=== PATIENT | female | born 1970 | race African-American/Black ===

== ENCOUNTER 2021-09-08 10:28 | Inpatient (IN) | payer SELFPAY ==
[~2021-09-08] VITALS: Ht 167.6 cm; Wt 80.0 kg
[2021-09-08] MEDS ORDERED: ONDANSETRON 4MG ODT PO ONE (11:15)
[2021-09-08] MEDS ORDERED: FAMOTIDINE 20MG TABLET PO ONE (11:15)
[2021-09-08] MEDS ORDERED: MIDAZOLAM HCL 2 MG/2 ML VIAL IM ONE (11:15)
[2021-09-08] MEDS ORDERED: MAGNESIUM/ALUMINUM HYDROXIDE/SIMETHICONE 30ML UDC PO ONE (11:15)
[2021-09-08] MEDS ORDERED: HALOPERIDOL LACTATE 5MG/ML VIAL IM ONE (11:15)
[2021-09-08] MEDS ORDERED: SODIUM CHLORIDE 0.9% 1,000 ML IV ONE (12:00)
[2021-09-08] MEDS ORDERED: LORAZEPAM 2MG/ML CPJ IV ONE (12:15)
[2021-09-08] MEDS ORDERED: CALCIUM GLUCONATE 100MG/ML 10ML VIAL IV ONE (13:00)
[2021-09-08] MEDS ORDERED: ATROPINE SULFATE 1MG/10ML SYR IV ONE (13:00)
[2021-09-08] MEDS ORDERED: NOREPINEPHRINE 8MG/250ML PMX 250 ML IV PRN (13:04)
[2021-09-08] MEDS ORDERED: NALOXONE HCL 0.4 MG/ML 1ML VIAL IV ONE (13:15)
[2021-09-08 13:38] LABS: CHLORIDE 106 mEq/L (98-107)
[2021-09-08] MEDS ORDERED: KETAMINE HCL 100 MG in SODIUM CHLORIDE 0.9% 98 ML IV PRN (13:45)
[2021-09-08] MEDS ORDERED: KETAMINE HCL IV PRN (13:45)
[2021-09-08] MEDS ORDERED: SODIUM CHLORIDE 0.9% IV PRN (13:45)
[2021-09-08 13:49] LABS: MEAN CORPUSCULAR HEMOGLOBIN 16.2 pg (28.0-32.0); MEAN CORPUSCULAR VOLUME 66.5 fL (81.0-99.0); MEAN PLATELET VOLUME 9.3 fl (7.4-10.4); PLATELET 237 x1000/uL (130-400); RED BLOOD CELL COUNT 2.65 mill/uL (4.2-5.4); RED CELL DISTRIBUTION WIDTH 22.7 % (11.6-14.6)
[2021-09-08 13:51] LABS: HEMATOCRIT. 17.6 % (36.0-48.0); HEMOGLOBIN. 4.3 g/dL (12.0-16.0)
[2021-09-08] MEDS ORDERED: PANTOPRAZOLE 80 MG in SODIUM CHLORIDE 0.9% 100 ML IV STA (13:52)
[2021-09-08] MEDS ORDERED: OCTREOTIDE ACETATE 50 MCG/ML 1ML IV STA (13:52)
[2021-09-08 14:01] LABS: BG BASE EXCESS -28.2 mmol/L (-2.0-2.0); BG CARBOXYHEMOGLOBIN 1.5 % (0.5-1.5); BG DEOXYHEMOGLOBIN 0.3 % (0.0-5.0); BG HCO3 ACT 3.2 mmol/L (22.0-26.0); BG METHEMOGLOBIN 0.3 % (0.0-1.5); BG OXYGEN SATURATION 99.7 % (92.0-98.5); BG OXYHEMOGLOBIN 97.9 % (94.0-97.0); BG PCO2 20.6 mmHg (35.0-45.0); BG PH 6.806 (7.350-7.450); BG PO2 530.6 mmHg (75.0-100.0); BG SAMPLE SITE RIGHT FEMORAL; BG TOTAL HEMOGLOBIN 4.7 g/dL (12.0-18.0); BG VENT MODE VENT - AC
[2021-09-08 14:08] LABS: NUCLEATED RED BLOOD CELLS 5 /100 WBC
[2021-09-08 14:09] LABS: PLATELET ESTIMATE NORMAL
[2021-09-08] MEDS ORDERED: VANCOMYCIN 1 G PREMIX 200 ML IV ONE (14:15)
[2021-09-08] MEDS ORDERED: INSULIN REGULAR (DRIP) 100 UNITS in SODIUM CHLORIDE 0.9% 99 ML IV NR (14:15)
[2021-09-08] MEDS ORDERED: CEFTRIAXONE 2 G PREMIX 50 ML IV ONE (14:15)
[2021-09-08] MEDS ORDERED: DEXT 5% WATER + KCL 20MEQ/L 1,000 ML IV ONE (14:15)
[2021-09-08] MEDS ORDERED: SODIUM BICARBONATE 150 MEQ in SODIUM CHLORIDE 0.45% 1,000 ML IV SCH (14:15)
[2021-09-08] MEDS: NOREPINEPHRINE 8MG/250ML PMX 250 ML IV PRN ×3 (14:16→22:54)
[2021-09-08] MEDS: DOPAMINE 400 MG PREMIX 250 ML IV PRN ×2 (14:44→22:54)
[2021-09-08] MEDS ORDERED: VASOPRESSIN 20 UNIT in SODIUM CHLORIDE 0.9% 99 ML IV PRN (15:30)
[2021-09-08 15:36] LABS: BG BASE EXCESS -19.6 mmol/L (-2.0-2.0); BG CARBOXYHEMOGLOBIN 0.7 % (0.5-1.5); BG DEOXYHEMOGLOBIN 14.3 % (0.0-5.0); BG HCO3 ACT 9.4 mmol/L (22.0-26.0); BG METHEMOGLOBIN 0.2 % (0.0-1.5); BG OXYGEN SATURATION 85.6 % (92.0-98.5); BG OXYHEMOGLOBIN 84.8 % (94.0-97.0); BG PCO2 37.7 mmHg (35.0-45.0); BG PH 7.016 (7.350-7.450); BG PO2 76.5 mmHg (75.0-100.0); BG SAMPLE SITE RIGHT FEMORAL; BG TOTAL HEMOGLOBIN 5.1 g/dL (12.0-18.0); BG VENT MODE VENT - AC
[2021-09-08] MEDS: EPINEPHRINE 5 MG in SODIUM CHLORIDE 0.9% 250 ML IV PRN ×2 (15:46→21:40)
[2021-09-08] MEDS ORDERED: SODIUM BICARBONATE 8.4% 1 MEQ/ML 50ML SYR IV ONE (15:48)
[2021-09-08] MEDS: VASOPRESSIN 20 UNIT in SODIUM CHLORIDE 0.9% 99 ML IV PRN ×2 (16:00→22:55)
[2021-09-08] MEDS ORDERED: SODIUM BICARBONATE 8.4% 1 MEQ/ML 50ML SYR IV NR (16:30)
[2021-09-08 16:53] LABS: CLARITY URINE TURBID (CLEAR); COLOR URINE DARK YELLOW (YELLOW); KETONES URINE TRACE (NEGATIVE); LEUKOCYTE ESTERASE URINE 2+ (NEGATIVE); NITRITE URINE NEGATIVE (NEGATIVE); OCCULT BLOOD URINE 3+ (NEGATIVE); PROTEIN URINE 3+ (NEGATIVE); SPECIFIC GRAVITY URINE 1.025 (1.005-1.030)
[2021-09-08 17:09] LABS: *AMPHETAMINES SCREEN URINE NEGATIVE (NEGATIVE); *BARBITURATES SCREEN URINE NEGATIVE (NEGATIVE); *BENZODIAZEPINES SCREEN URINE NEGATIVE (NEGATIVE); *COCAINE SCREEN URINE PRESUMTIVE POSITIVE (NEGATIVE); METHADONE URINE SCREEN NEGATIVE (NEGATIVE); OPIATES URINE SCREEN NEGATIVE (NEGATIVE)
[2021-09-08 17:10] LABS: CANNABINOID URINE SCREEN NEGATIVE (NEGATIVE); PHENCYCLIDINE URINE SCREEN NEGATIVE (NEGATIVE)
[2021-09-08] MEDS: SODIUM BICARBONATE 150 MEQ in DEXTROSE 5% WATER 1,000 ML IV SCH (17:36)
[2021-09-08 17:56] LABS: ETHANOL BLOOD < 10 mg/dL
[2021-09-08 18:09] LABS: BG BASE EXCESS -20.4 mmol/L (-2.0-2.0); BG CARBOXYHEMOGLOBIN 0.2 % (0.5-1.5); BG DEOXYHEMOGLOBIN 5.7 % (0.0-5.0); BG HCO3 ACT 9.1 mmol/L (22.0-26.0); BG METHEMOGLOBIN 0.7 % (0.0-1.5); BG OXYGEN SATURATION 94.2 % (92.0-98.5); BG OXYHEMOGLOBIN 93.4 % (94.0-97.0); BG PCO2 37.5 mmHg (35.0-45.0); BG PH 7.004 (7.350-7.450); BG PO2 105.7 mmHg (75.0-100.0); BG SAMPLE SITE RIGHT FEMORAL; BG TOTAL HEMOGLOBIN 6.8 g/dL (12.0-18.0); BG VENT MODE VENT - AC
[2021-09-08 18:14] LABS: PHOSPHORUS 10.1 mg/dL (2.5-4.9)
[2021-09-08] MEDS ORDERED: ACETAMINOPHEN 650MG SUPP PR PRN (18:30)
[2021-09-08] MEDS ORDERED: DIPHENHYDRAMINE 50MG/ML VIAL IV PRN (18:30)
[2021-09-08] MEDS ORDERED: ONDANSETRON HCL 4MG/2ML INJ IV PRN (18:30)
[2021-09-08 19:53] LABS: PHOSPHORUS 10.2 mg/dL (2.5-4.9)
[2021-09-09] MEDS: NOREPINEPHRINE 8MG/250ML PMX 250 ML IV PRN ×5 (00:25→08:19)
[2021-09-09 03:51] LABS: CHLORIDE 101 mEq/L (98-107); HEMATOCRIT. 22.8 % (36.0-48.0); MEAN CORPUSCULAR HEMOGLOBIN 19.5 pg (28.0-32.0); MEAN CORPUSCULAR VOLUME 73.1 fL (81.0-99.0); MEAN PLATELET VOLUME 9.7 fl (7.4-10.4); PLATELET 160 x1000/uL (130-400); RED BLOOD CELL COUNT 3.12 mill/uL (4.2-5.4); RED CELL DISTRIBUTION WIDTH 28.2 % (11.6-14.6)
[2021-09-09 04:00] LABS: HEMOGLOBIN. 6.1 g/dL (12.0-16.0)
[2021-09-09 04:03] LABS: CREATINE KINASE MB FRACTION 47.1 ng/mL (0.5-3.6)
[2021-09-09 04:12] LABS: CREATINE KINASE 1226 IU/L (26-192)
[2021-09-09] MEDS ORDERED: VASOPRESSIN 20 UNITS in SODIUM CHLORIDE 0.9% 100 ML IV PRN (04:15)
[2021-09-09 05:13] LABS: PHOSPHORUS 8.6 mg/dL (2.5-4.9)
[2021-09-09] MEDS: SODIUM BICARBONATE 150 MEQ in DEXTROSE 5% WATER 1,000 ML IV SCH (05:23)
[2021-09-09] MEDS: EPINEPHRINE 5 MG in SODIUM CHLORIDE 0.9% 250 ML IV PRN ×2 (08:00→09:02)
[2021-09-09] MEDS ORDERED: EPINEPHRINE 10 MG in SODIUM CHLORIDE 0.9% 250 ML IV PRN (09:00)
[2021-09-09] MEDS ORDERED: PANTOPRAZOLE SODIUM 40 MG/VIAL IV SCH (09:00)
[2021-09-09 10:31] LABS: BG BASE EXCESS -24.5 mmol/L (-2.0-2.0); BG CARBOXYHEMOGLOBIN 1.2 % (0.5-1.5); BG DEOXYHEMOGLOBIN 15.2 % (0.0-5.0); BG FRACTION INSPIRED OXYGEN 100; BG HCO3 ACT 8.2 mmol/L (22.0-26.0); BG METHEMOGLOBIN 0.5 % (0.0-1.5); BG OXYGEN SATURATION 84.5 % (92.0-98.5); BG OXYHEMOGLOBIN 83.1 % (94.0-97.0); BG PCO2 52.8 mmHg (35.0-45.0); BG PH 6.809 (7.350-7.450); BG SAMPLE SITE RIGHT RADIAL; BG TOTAL HEMOGLOBIN 7.3 g/dL (12.0-18.0); BG VENT MODE VENT - AC
[2021-09-09 10:47] VITALS: BP 0/0
[2021-09-09 13:22] LABS: PLATELET ESTIMATE NORMAL
== END 2021-09-09 12:23 | DRG 720 ==
LOC: ER 10:28 → MICUSO 15:33 → EDBEDREQTM 15:44 → EDBEDREQ 15:44
PROVIDERS: ADMIT Internal Medicine; ATTEND Internal Medicine
PROC: 02HV33Z Insertion of Infusion Device into Superior Vena Cava, Percutaneous Approach (ICD-10-PCS; principal; 2021-09-08)
PROC: 5A1935Z Respiratory Ventilation, Less than 24 Consecutive Hours (ICD-10-PCS; 2021-09-08)
PROC: B548ZZA Ultrasonography of Superior Vena Cava, Guidance (ICD-10-PCS; 2021-09-08)
PROC: 5A12012 Performance of Cardiac Output, Single, Manual (ICD-10-PCS; 2021-09-08)
PROC: 30233N1 Transfusion of Nonautologous Red Blood Cells into Peripheral Vein, Percutaneous Approach (ICD-10-PCS; 2021-09-08)
PROC: 0BH17EZ Insertion of Endotracheal Airway into Trachea, Via Natural or Artificial Opening (ICD-10-PCS; 2021-09-08)
PROC: 5A12012 Performance of Cardiac Output, Single, Manual (ICD-10-PCS; 2021-09-09)
DX: A41.9 Sepsis, unspecified organism (principal); J96.01 Acute respiratory failure with hypoxia; I46.9 Cardiac arrest, cause unspecified; N17.0 Acute kidney failure with tubular necrosis; R65.21 Severe sepsis with septic shock; J18.9 Pneumonia, unspecified organism; E43 Unspecified severe protein-calorie malnutrition; E87.2 Acidosis; G93.40 Encephalopathy, unspecified; I21.4 Non-ST elevation (NSTEMI) myocardial infarction; R00.1 Bradycardia, unspecified; K74.60 Unspecified cirrhosis of liver; E66.01 Morbid (severe) obesity due to excess calories; Z20.822 Contact with and (suspected) exposure to COVID-19; R79.89 Other specified abnormal findings of blood chemistry; D64.9 Anemia, unspecified; F14.129 Cocaine abuse with intoxication, unspecified; Z59.00 Homelessness unspecified; Z82.49 Family history of ischemic heart disease and other diseases of the circulatory system; Z68.28 Body mass index [BMI] 28.0-28.9, adult; Z78.1 Physical restraint status
CPT/HCPCS: 36415; 36600; 71045; 76700; 80053; 80305; 80307; 80320; 80329; 81003; 82375; 82550; 82553; 82805; 82962; 83735; 83880; 84100; 84443; 84484; 85025; 85379; 86850; 86900; 86920; 87077; 87186; 87426; 93005; 93970; 94002; 94003; 99291; C9113; J0461; J0610; J0696; J1265; J1630; J1815; J2060; J2250; J2310; J2354; J3370; J3490; J7030; J7050; J7060; J7070; P9016; P9021; Q0162; A4315; G0480